=== PATIENT | female | born 1990 | race Two or more races ===

== ENCOUNTER 2020-02-06 07:03 | Emergency (ER) | payer OTHER ==
[~2020-02-06] VITALS: Ht 160 cm; Wt 90.7 kg
--- NOTE | 2020-02-06 07:20 | NUR ---
patient bib lapd in custody c/o cough x 1 week. on room air, breathing evenly and unlabored. kept comfortable, will continue to monitor accordingly.
--- NOTE | 2020-02-06 07:48 | NUR ---
patient left in stable condition accompanied by [employer] incustody, denies any pain or discomfort at this time.
[2020-02-06 07:49] VITALS: BP 145/81
== END 2020-02-06 07:50 ==
LOC: ER 07:07
DX: J40 Bronchitis, not specified as acute or chronic (principal); F17.200 Nicotine dependence, unspecified, uncomplicated